=== PATIENT | female | born 1975 | race African-American/Black ===

== ENCOUNTER 2021-01-25 22:02 | Emergency (ER) | payer OTHER ==
[~2021-01-25] VITALS: Ht 162.6 cm; Wt 73.0 kg
[2021-01-25] MEDS ORDERED: HALOPERIDOL LACTATE 5MG/ML VIAL IM STA (22:59)
[2021-01-25] MEDS ORDERED: LORAZEPAM 2MG/ML CPJ IV STA (22:59)
[2021-01-25] MEDS ORDERED: SODIUM CHLORIDE 0.9% 1,000 ML IV ONE (23:30)
[2021-01-25 23:44] LABS: BASOPHILS % 0.9 % (0.0-2.0); EOSINOPHILS % 0.1 % (0.0-5.0); HEMATOCRIT. 39.3 % (36.0-48.0); HEMOGLOBIN. 13.5 g/dL (12.0-16.0); LYMPHOCYTES % 18.9 % (20.0-50.0); MEAN CORPUSCULAR HEMOGLOBIN 30.6 pg (28.0-32.0); MEAN CORPUSCULAR VOLUME 89.2 fL (81.0-99.0); MEAN PLATELET VOLUME 8.7 fl (7.4-10.4); MONOCYTES % 6.3 % (2.0-8.0); NEUTROPHILS % 73.8 % (40.0-76.0); PLATELET 265 x1000/uL (130-400); RED CELL DISTRIBUTION WIDTH 14.5 % (11.6-14.6)
[2021-01-25 23:46] LABS: CHLORIDE 101 mEq/L (98-107)
[2021-01-25 23:47] LABS: HCG SCREEN NEGATIVE
[2021-01-25 23:50] LABS: ETHANOL BLOOD < 10 mg/dL
[2021-01-26] MEDS ORDERED: POTASSIUM CHLORIDE 20MEQ TABLET SR PO ONE (00:30)
[2021-01-26] MEDS ORDERED: SODIUM CHLORIDE 0.9% 1,000 ML IV ONE ×2 (03:00)
[2021-01-26 04:44] LABS: CLARITY URINE CLEAR (CLEAR); COLOR URINE YELLOW (YELLOW); KETONES URINE TRACE (NEGATIVE); LEUKOCYTE ESTERASE URINE 2+ (NEGATIVE); NITRITE URINE POSITIVE (NEGATIVE); OCCULT BLOOD URINE TRACE (NEGATIVE); PROTEIN URINE 1+ (NEGATIVE); SPECIFIC GRAVITY URINE 1.016 (1.005-1.030)
[2021-01-26 04:54] LABS: *AMPHETAMINES SCREEN URINE NEGATIVE (NEGATIVE); *BENZODIAZEPINES SCREEN URINE NEGATIVE (NEGATIVE); *COCAINE SCREEN URINE NEGATIVE (NEGATIVE); CANNABINOID URINE SCREEN NEGATIVE (NEGATIVE); METHADONE URINE SCREEN NEGATIVE (NEGATIVE); OPIATES URINE SCREEN NEGATIVE (NEGATIVE); PHENCYCLIDINE URINE SCREEN NEGATIVE (NEGATIVE)
[2021-01-26 04:55] LABS: *BARBITURATES SCREEN URINE NEGATIVE (NEGATIVE)
[2021-01-26] MEDS ORDERED: CEFTRIAXONE 1 G PREMIX 50 ML IV NR (05:45)
[2021-01-26 10:08] VITALS: BP 95/65
== END 2021-01-26 10:17 | disposition short-term general hospital (02) ==
LOC: ER 22:02
DX: F23 Brief psychotic disorder (principal); N39.0 Urinary tract infection, site not specified; E87.6 Hypokalemia; E03.9 Hypothyroidism, unspecified; Z20.822 Contact with and (suspected) exposure to COVID-19
CPT/HCPCS: 36415; 80053; 80305; 80320; 81003; 82962; 84443; 84703; 85025; 87077; 87086; 87186; 96361; 96365; 96372; 96375; 99285; C9803; J0696; J1630; J2060; J7030; U0003; U0005; G0480